=== PATIENT | female | born 1960 | race Hispanic/Latino ===

== ENCOUNTER 2017-10-15 06:21 | Day surgery (SDC) | payer MEDICARE ==
[2015-02-28 09:47] VITALS: BMI 30.1
[2017-10-15] MEDS ORDERED: Lidocaine/Epinephrine 1% 1:100000 10 ML IJ ONE (07:19)
[2017-10-15] MEDS ORDERED: ceFAZolin 1 gm in NS 2 GM/200 ML BAG IVPB ONE (07:29)
[2017-10-15] MEDS ORDERED: Remifentanil 1 mg/3 ml Vial IV ONE ×2 (07:37→09:32)
[2017-10-15] MEDS ORDERED: Propofol 10 mg/ml 1,000 MG/100 ML VIAL ONE (07:37)
[2017-10-15] MEDS ORDERED: Midazolam 2 MG/2 ML VIAL ONE (07:51)
[2017-10-15] MEDS ORDERED: Propofol 10 mg/ml Inj (20 ML) ONE ×3 (07:51→09:23)
[2017-10-15] MEDS ORDERED: Rocuronium 10 mg/ml (10 ml) ONE (07:54)
[2017-10-15] MEDS ORDERED: Phenylephrine 10 mg/ml Inj ONE (08:14)
[2017-10-15] MEDS ORDERED: ePHEDrine 50 mg/ml Inj ONE (08:15)
[2017-10-15] MEDS ORDERED: Bupivacaine 0.5% Inj(30mL) IJ ONE (08:49)
[2017-10-15] MEDS ORDERED: Bupivacaine HCl 0.5% PF (30 ml) Inj ONE ×2 (08:57→10:55)
[2017-10-15] MEDS ORDERED: Labetalol 25mg/5ml Syringe ONE (10:20)
[2017-10-15] MEDS ORDERED: Oxycodone/Acetaminophen 5/325 mg Tab PO PRN (10:44)
[2017-10-15] MEDS ORDERED: HYDROmorphone 1 mg/ml ISec IVP PRN (10:44)
--- NOTE | 2017-10-15 10:44 | PCM.SURG1 ---
Surgeon's Initial Post Op Note - Surgeon's Notes Surgeon: Max Shukla MD Manager Assembly: Lianna Roach PA-C Type of Anesthesia: General Endo Anesthesia Administered By: Dr. Peng Pre-Operative Diagnosis: R shoulder cuff and labral tear Operative Findings: see full note Post-Operative Diagnosis: same Operation Performed: right shoulder arthroscopy with cuff and labral repair with subacromial decompression Specimen/Specimens Removed: none Estimated Blood Loss: EBL {In ML}: 10 Blood Products Given: N/A Drains Used: No Drains Post-Op Condition: Fair Date of Surgery/Procedure: 10/15/17 Time of Surgery/Procedure: 08:30
[2017-10-15] MEDS ORDERED: HYDROmorphone 1 mg/ml ISec ONE (10:50)
[2017-10-15] MEDS ORDERED: Apap-Butalbital-Caffeine 325-50-40mg Tab PO ONE (15:03)
--- NOTE | 2017-10-15 15:18 | PCM.ANESB1 ---
Interscalene Block - Brachial Plexus Date of Procedure: 10/15/17 Anesthesiologist: Tray Peng Pre-Procedure Diagnosis: Postoperative pain Post-Procedure Diagnosis: Postoperative pain Procedure Performed: Interscalene Block of Brachial Plexus Right - Procedure Interscalene Block of Brachial Plexus: This procedure was explained to the patient that it is for post-operative pain management. Consent was obtained after a thorough discussion with the patient regarding the benefits and possible complications of local anesthetic block of the Brachial Plexus at the Interscalene area. The patient was brought to the [facility] and standard monitors were applied. Time out was held with the circulating nurse to confirm the correct surgery and appropriate block. After applying Oxygen by nasal cannula and administering IV Sedation, the patient's head was gently rotated away from the RIGHT_operative shoulder and the anterior scalene groove was carefully palpated. The ultrasound transducer was then applied to the skin in the transverse plane and the brachial plexus was visualized lateral to the carotid artery and in between the anterior and middle scalene muscles. After identification,the anterior lateral portion of the neck was prepped with Betadine solution three times and Lidocaine 1% was injected subcutaneously for topical analgesia. At this point, a # 22 gauge Stimuplex 2 inches insulated needle was inserted into the interscalene groove and directed in a caudal and midline direction. The needle was inserted lateral to the ultrasound transducer in-plane towards the brachial plexus in a [id number] direction. Needle advancement was performed carefully under direct ultrasound visualization. After repeated negative aspiration,___10__cc of_0.5 %bupivicaine were injected and this was followed with 10_cc of 0.5_% _bupivicaine after negative aspiration__. Under ultrasound guidance the local anesthetics were observed surrounding the roots of the brachial plexus. The needle was removed intact and sterile dressing was applied. The patient had stable vital signs, was conscious and in no apparent distress. The patient tolerated the interscalene block of the bracheal plexus well with stable vital signs with no sequalae, no pain, no paresthesias, no complaints.
[2017-10-15] MEDS ORDERED: Promethazine 12.5 mg/10 ml Syrup PO PRN (15:21)
[2017-10-15] MEDS ORDERED: Lactated Ringer's 1,000 ML IV ONE (18:39)
[2017-10-15] MEDS: Lactated Ringer's 1,000 ML IV SCH (20:14)
--- NOTE | 2017-10-15 22:40 | OP ---
PROCEDURE DATE: 10/15/2017 PREOPERATIVE DIAGNOSES: Right shoulder rotator cuff tear, labral tear, impingement syndrome, and biceps tendon tear. POSTOPERATIVE DIAGNOSES: Right shoulder rotator cuff tear, labral tear, impingement syndrome and biceps tendon tear. PROCEDURE: Right shoulder arthroscopy with arthroscopic cuff repair, arthroscopic labral repair, subacromial decompression. SURGEON: Silvano Shukla MD INSTRUCTOR TRAINER CANINE SERVICE: Dr. Shukla was assisted by Yanira Saleh, the physician gift shop assistant. Ms. Saleh was scrubbed and present throughout the entire procedure and assisted in patient positioning, holding of the camera during the repair and wound closure. TYPE OF ANESTHESIA: General. COMPLICATIONS: None. ESTIMATED BLOOD LOSS: 10 mL. INDICATIONS FOR PROCEDURE: This is a 57-year-old female who presented with chronic right shoulder pain. Clinical examination with some pain due to the impingement arc, positive Gaxiola's sign, pain with some weakness, weakness with abduction and forward flexion. MRI examination was consistent with full thickness tear of the supraspinatus as well as tearing of her biceps tendon as well as anterior inferior labral tear. After a period of nonsurgical management, recommendation was for a right shoulder arthroscopy. The risks, benefits, and alternatives of the procedure were discussed with the patient and informed consent was obtained. DESCRIPTION OF PROCEDURE: After surgical site was finally verified in the preoperative holding area, patient was taken to the operating room and placed supine on the operating room table. After administration of general anesthesia, patient received 2 g of Ancef IV. The patient was positioned in the lateral decubitus position with the right shoulder up towards the ceiling. Care was taken to make sure all bony prominences and nerves were well padded and protected. Axillary roll was placed in the left axilla. Venodyne boots were placed on the bilateral lower extremities and the right upper extremity was prepped and draped in the usual sterile fashion. The bony landmarks were identified about the right shoulder and portal sites were injected with a total of 10 mL of 1% lidocaine with epinephrine. Posterior arthroscopy portal was established and the arthroscope was inserted into the shoulder joint. The chondral surface of the glenoid and humeral head were noted to have some grade 1 changes. The anterior interval was identified and under direct arthroscopic visualization an anterior portal was established. The long head of the biceps tendon was not visualized, indicating a chronic tear. Subscapularis did have some intrasubstance tearing but did not appear to be obviously detached. The anterior labrum was probed and the patient was noted to have tear of the anterior inferior labrum approximately at the 4 to 5 o'clock position. At this point through the anterior portal, a Q-Fix Ibrahim [employer] Nephew anchor was inserted into the face of glenoid and using a , the suture was passed around the labral tissue and tied firmly securing the labral tissue back down until the footprint. The labral tissue was again probed and was noted to be stable. The posterior labrum was noted to be intact. The biceps anchor was noted to have a little bit of fraying and this was debrided. Supraspinatus was well visualized. The patient was noted to have a full-thickness tear of the supraspinatus and this was debrided on the articular side. Extensive synovitis was also noted and this was also debrided using a full-radius shaver. No loose bodies were appreciated intraarticularly, and at this point, the arthroscope was inserted into the subacromial space. A lateral port was established and a bursectomy was performed which gave us excellent visualization of the under surface of acromion as well as the rotator cuff. Using a macey, an acromioplasty was performed. Satisfied with the subacromial space adequate decompression, our attention was directed to the rotator cuff tear. The tear could be mobilized back to its footprint, and at this point, the footprint of the rotator cuff was debrided down to the cancellous bone. Once this was done, the tear was repaired by turning two Sudha-Coil double loaded anchors each loading with tape as well as suture, and the sutures were passed in a mattress like fashion and tied firmly securing the tendon back down to the footprint and achieving full coverage. Satisfied, all the instruments were removed and the portal sites were closed using interrupted 2-0 Vicryl suture and 3-0 nylon. A sterile dressing was applied and abduction pillow was placed. The patient was awakened and taken to recovery room in stable condition. Silvano Shukla MD [facility] # [id number]
[2017-10-16 00:26] VITALS: RESP 20
[2017-10-16] MEDS: Lactated Ringer's 1,000 ML IV SCH ×2 (02:47→05:12)
[2017-10-16 08:57] VITALS: BP 127/86; PULSE 55; TEMP 98; O2SAT 95
[2017-10-16] MEDS ORDERED: Enoxaparin 30 mg Syringe SC SCH (10:15)
== END 2017-10-16 11:13 | disposition home or self-care (01) ==
LOC: C.SDS 06:21 → C.6T 18:35 → C.SDS 10-16 11:13
PROVIDERS: ATTEND Orthopaedic Surgery
DX: M75.101 Unspecified rotator cuff tear or rupture of right shoulder, not specified as traumatic (principal); M75.41 Impingement syndrome of right shoulder; S46.111A Strain of muscle, fascia and tendon of long head of biceps, right arm, initial encounter; S43.401A Unspecified sprain of right shoulder joint, initial encounter; G89.29 Other chronic pain; M54.9 Dorsalgia, unspecified; Z85.828 Personal history of other malignant neoplasm of skin
CPT/HCPCS: 29823; 29826; 29827; C1713; J0171; J0690; J1170; J1885; J2250; J2370; J2405; J2704; J3010; J7120

== ENCOUNTER 2018-03-25 07:28 | Day surgery (SDC) | payer MEDICARE ==
[2018-03-22 12:53] VITALS: BMI 28.8
[2018-03-25] MEDS ORDERED: Propofol 10 mg/ml 1,000 MG/100 ML VIAL ONE (08:34)
[2018-03-25] MEDS ORDERED: Midazolam 2 MG/2 ML VIAL ONE ×2 (08:39→09:01)
[2018-03-25] MEDS ORDERED: Lidocaine/Epinephrine 1% 1:100000 10 ML IJ ONE (08:57)
[2018-03-25] MEDS ORDERED: Bupivacaine 0.25% 20 ML INJ IJ ONE (08:57)
[2018-03-25] MEDS ORDERED: ceFAZolin IV 1 gm in Dextrose 1 GM/50 ML BAG IVPB ONE (08:57)
[2018-03-25] MEDS ORDERED: Propofol 10 mg/ml Inj (20 ML) ONE ×4 (08:59→11:03)
[2018-03-25] MEDS ORDERED: ceFAZolin 1 gm in NS 1 GM/100 ML BAG IVPB ONE (09:26)
[2018-03-25] MEDS ORDERED: metroNIDAZOLE IV 500 mg/100 ml 500 MG/100 ML BAG ONE (09:26)
--- NOTE | 2018-03-25 11:37 | PCM.SURG1 ---
Surgeon's Initial Post Op Note - Surgeon's Notes Surgeon: Early Learning Teacher: Dr. Dsouza PGY3 Type of Anesthesia: General Endo Pre-Operative Diagnosis: external hemorrhoids Operative Findings: see operative report Post-Operative Diagnosis: see operative report Operation Performed: hemorrhoidectomy Specimen/Specimens Removed: hemorrhoids Estimated Blood Loss: EBL {In ML}: 20 Blood Products Given: N/A Drains Used: No Drains Post-Op Condition: Good Date of Surgery/Procedure: 03/25/18 Time of Surgery/Procedure: 09:30
[2018-03-25] MEDS ORDERED: HYDROmorphone 0.5 mg/0.5 ml ISec ONE (12:23)
[2018-03-25] MEDS: HYDROmorphone 0.5 mg/0.5 ml ISec IVP PRN ×2 (12:26→12:49)
[2018-03-25] MEDS: Apap-Butalbital-Caffeine 325-50-40mg Tab PO STA ×2 (14:16→14:40)
[2018-03-25 14:36] VITALS: RESP 16
[2018-03-25 14:38] VITALS: BP 132/95; PULSE 80; TEMP 97.7; O2SAT 96
--- NOTE | 2018-03-27 23:36 | OP ---
PROCEDURE DATE: 03/25/2018 PREOPERATIVE DIAGNOSES: 1. Prolapsed grade III and grade IV hemorrhoids. 2. Bleeding per rectum. 3. Chronic constipation. POSTOPERATIVE DIAGNOSES: 1. Prolapsed grade III and grade IV hemorrhoids. 2. Bleeding per rectum. 3. Chronic constipation. PROCEDURES DONE: 1. Two-column hemorrhoidectomy. 2. Examination under anesthesia. 3. Pudendal nerve block. SURGEON: Tariq Vega MD VISUAL STYLIST: Albino Dsouza DO, PGY-3 resident ANESTHESIA: General endotracheal tube anesthesia. ESTIMATED BLOOD LOSS: Around 20 mL. DRAIN: None. PATHOLOGY: 1. Left lateral hemorrhoid. 2. Right lateral large hemorrhoid. They were sent for the pathology. COMPLICATIONS: None. DESCRIPTION OF PROCEDURE: On intraoperative steps, this is a 58-year-old female who was diagnosed with grade III and grade IV hemorrhoids with bleeding per rectum, and the patient also had chronic constipation. After proper treatment of chronic constipation, the patient was consented, brought to the OR, placed supine on the operating table. After induction of the anesthesia, the patient was placed in the prone jackknife position. The buttock was taped apart, and the perineal area was prepped and draped in the usual sterile fashion. Examination under anesthesia was done. The patient had large right lateral as well as left lateral hemorrhoids, and there was no hemorrhoid anteriorly. First, elliptical incision was made surrounding the right lateral hemorrhoid, and the dissection was carried down deep up to the pedicle, and the pedicle was ligated with 0 Vicryl suture, double type. The wound was closed with 2-0 PDS continuous suture as well as 4-0 Vicryl interrupted sutures. After that, the left lateral elliptical incision was made, and the dissection was carried down up to the pedicle. The pedicle was ligated with 2-0 Vicryl interrupted sutures as well as PDS was used to close the wound and 4-0 Vicryl. After that, the bilateral pudendal nerve block was given. Then, 10 mL of lidocaine was injected into the pudendal nerve area on the both sides as well as locally. After that, surgical packing was placed. The wound was covered with sterile dressing, and the patient was placed in supine position. The patient was reversed from anesthesia and sent to the postanesthesia care unit in stable condition. There were no apparent complications. Tariq Vega MD
== END 2018-03-25 14:34 | disposition home or self-care (01) ==
LOC: C.SDS 07:28
PROVIDERS: ATTEND Surgery Surgical Critical Care
DX: K64.9 Unspecified hemorrhoids (principal); K62.5 Hemorrhage of anus and rectum; K59.09 Other constipation; K64.3 Fourth degree hemorrhoids
CPT/HCPCS: 46260; 64430; 88304; J0690; J1170; J1885; J2250; J2405; J2704

== ENCOUNTER 2018-12-09 06:05 | Observation (INO) | payer MEDICARE ==
[2018-12-04 09:55] VITALS: BMI 28.8
[2018-12-09] MEDS ORDERED: Bupivacaine HCl 0.25% PF (10 ml) Inj ONE (07:48)
[2018-12-09] MEDS ORDERED: ceFAZolin 1 gm in NS 2 GM/200 ML BAG IVPB ONE (07:48)
[2018-12-09] MEDS ORDERED: Lidocaine Hydrochloride 10 ML INJ ONE (07:48)
[2018-12-09] MEDS ORDERED: Propofol 10 mg/ml 1,000 MG/100 ML VIAL ONE ×2 (07:51→07:52)
[2018-12-09] MEDS ORDERED: Propofol 10 mg/ml Inj (20 ML) ONE ×5 (07:59→12:07)
[2018-12-09] MEDS ORDERED: Midazolam 2 MG/2 ML VIAL ONE ×3 (07:59→12:10)
--- NOTE | 2018-12-09 12:39 | PCM.SURG1 ---
Surgeon's Initial Post Op Note - Surgeon's Notes Surgeon: Dr. Katalina Cabral, DPM Director Of Agronomy: Lianna Butler, PGY-3; Giovanni Toledo, PGY-3; Kwabena Lawrence, PGY2; Lianna Escobar, PGY2 Type of Anesthesia: General Endo, Local (10cc 1:1 mixture 0.25% marcaine plain to lidocaine 1% plain) Anesthesia Administered By: Dr. Danish MD Pre-Operative Diagnosis: 1) Right calcaneous closed, intra-articular, comminuted, displaced fracture Operative Findings: See dictation. M: Arthrex Standard right percutaneous plate, Arthres 4.0 x 50mm partially threaded cannulated screw. I: 10cc of 0.25% marcaine plain; 8mL Arthrex Quichset Bone Graft Post-Operative Diagnosis: Same as pre-operative Operation Performed: Rigth calcenous open reduction with internal fixation and allograft Specimen/Specimens Removed: None Estimated Blood Loss: EBL {In ML}: 50 Blood Products Given: N/A Drains Used: No Drains Post-Op Condition: Good Date of Surgery/Procedure: 12/09/18 Time of Surgery/Procedure: 12:39
--- NOTE | 2018-12-09 12:56 | CP.PCM.HP ---
<Federico Dickey - Last Filed: 12/09/18 16:36> History of Present Illness - History of Present Illness History of Present Illness: 58 year old female with a past medical history of lip cancer, hyperlipidemia and insomnia presents to the PACU after having a ORIF of the right calcaneus. Patieulalia mix reportedly was holding her grandson when she tripped and fell. Patient denies any chest pain, dizziness, or changes in vision prior to the event. Patient subsequently after the event was unable to bear weight on the ankle. Patient denies any chest pain, headaches, fevers, chills, syncopal episodes, or any other complaints. Medical history: lip cancer, hld, inomnia Medications: Crestor 5mg PO HS, Sumatriptan/Naproxen 500-85mg 1 tab PO PRN, Ambien 10mg PO HS PRN Surgical history: rotator cuff repair, hemorrhoidectomy Allergies: denies Present on Admission - Present on Admission Any Indicators Present on Admission: No Review of Systems - Review of Systems Systems not reviewed;Unavailable: Other Review of Systems: S/P or procedure Past Patient History - Infectious Disease Hx of Infectious Diseases: None - Tetanus Immunizations Tetanus Immunization: Unknown - Past Medical History & Family History Past Medical History?: Yes - Past Social History Smoking Status: Current Some Days Smoker - CARDIAC Hx Cardiac Disorders: No - PULMONARY Hx Respiratory Disorders: No - NEUROLOGICAL Hx Neurological Disorder: Yes Hx Migraine: Yes - HEENT Hx HEENT Problems: No - RENAL Hx Chronic Kidney Disease: No - ENDOCRINE/METABOLIC Hx Endocrine Disorders: No - HEMATOLOGICAL/ONCOLOGICAL Hx Blood Disorders: Yes Hx Cancer: Yes (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 HX: RIGHT DISPLACED CALCANEAL FRACTURE - GASTROINTESTINAL Hx Gastrointestinal Disorders: Yes Hx Hemorrhoids: Yes - GENITOURINARY/GYNECOLOGICAL Hx Genitourinary Disorders: No - PSYCHIATRIC Hx Psychophysiologic Disorder: Yes Hx Anxiety: Yes Hx Depression: Yes - SURGICAL HISTORY Hx Surgeries: Yes Hx Musculoskeletal Surgery: Yes (RIGHT ROTATOR CUFF REPAIR) Other/Comment: HX: "SKIN CANCER-MOLES REMOVED FROM HEAD,SHOULDER, CHEST.". HX: HEMORRHOIDECTOMY - ANESTHESIA Hx Anesthesia: Yes Hx Anesthesia Reactions: Yes (NAUSEA/VOMITING- PRONE TO MOTION SICKNESS) Hx Malignant Hyperthermia: No Has any member of the family had a problem w/ anesthesia?: No Meds Allergies/Adverse Reactions: Allergies Allergy/AdvReac Type Severity Reaction Status Date / Time No Known Allergies Allergy Verified 12/08/18 08:57 Physical Exam - Head Exam Head Exam: ATRAUMATIC, NORMAL INSPECTION - Eye Exam Eye Exam: EOMI, Normal appearance, PERRL Pupil Exam: NORMAL ACCOMODATION, PERRL. absent: Irregular, Unequal - ENT Exam ENT Exam: Mucous Membranes Moist, Normal Oropharynx - Respiratory Exam Respiratory Exam: Clear to Auscultation Bilateral, NORMAL BREATHING PATTERN. absent: Prolonged Expiratory Phase, Respiratory Distress - Cardiovascular Exam Cardiovascular Exam: REGULAR RHYTHM, +S1, +S2 - GI/Abdominal Exam GI & Abdominal Exam: Normal Bowel Sounds, Soft. absent: Organomegaly, Tenderness - Extremities Exam Extremities exam: Positive for: normal inspection. Negative for: full ROM, pedal edema - Back Exam Back exam: NORMAL INSPECTION. absent: CVA tenderness (L), CVA tenderness (R), paraspinal tenderness - Neurological Exam Neurological exam: Alert, CN II-XII Intact, Oriented x3 - Psychiatric Exam Psychiatric exam: Normal Affect, Normal Mood - Skin Skin Exam: Dry, Intact, Normal Color Results - Vital Signs Recent Vital Signs: Last Vital Signs Temp 98.1 F 12/09/18 07:02 Pulse 86 12/09/18 07:02 Resp 18 12/09/18 07:02 BP 105/70 12/09/18 07:02 Pulse Ox 97 12/09/18 07:02 - Labs Result Diagrams: 12/09/18 15:21 12/09/18 15:21 Assessment & Plan - Assessment and Plan (Free Text) Assessment: 58 year old female with a past medical history of lip cancer, hyperlipidemia and insomnia presents to the PACU after having a ORIF of the right calcaneus Plan: 1.Right displaced intrarticular calcaneal fracutre Acute s/p ORIF by Podiatry Dr. Cabral Patient to have nerve block done by Anestheisiology prior to transfer to floor. Patient has history of nausea and vomiting with other pain medicines. Medications: Oxycodone 1 PO Q4 PRN Oxycodone 2 PO Q4 PRN Toradol 30mg IVP Q6 PRN Zofran 4mg IVP ONCE PRN 2.Elevated AST Acute -AST 47 on admission -Will f/u with repeat liver enzymes tomorrow. 3.hx of Hyerplipidemia Chronic -Continue Rosuvastatin 5mg PO HS 4.hx of Migraines -Chronic -Continue Sumatriptan 1 tab PO PRN (Once dose and frequency confirmed after pain medication subsides.) ppx -Lovenox -GI ppx not indicated at this time. Dispo: Awaiting further recommendations from Podiatry. Plan discussed with Attending Dr. Juan Irizarry. Federico Dickey, PGY-2 <Juan Irizarry - Last Filed: 12/13/18 12:47> Results - Vital Signs Recent Vital Signs: Last Vital Signs Temp 99.0 F 12/10/18 16:00 Pulse 75 12/10/18 16:00 Resp 20 12/10/18 16:00 BP 114/67 12/10/18 16:00 Pulse Ox 96 12/10/18 18:00 - Labs Result Diagrams: 12/10/18 06:47 12/10/18 06:47 Attending/Attestation - Attestation I have personally seen and examined this patient.: Yes I have fully participated in the care of the patient.: Yes I have reviewed all pertinent clinical information: Yes Notes (Text): 12/13/18 12:47 This is a late entry. Care of this patient (History, Physical, Assessment and Plan, and Orders) was gone over in detail with resident Dr. Robin Dickey. Juan Irizarry D.O.
[2018-12-09] MEDS ORDERED: Ropivacaine 0.5% PF (20 ml) inj INJ ONE (14:35)
--- NOTE | 2018-12-09 15:01 | RAD ---
Date of service: 12/09/2018 PROCEDURE: Right Foot Radiographs. HISTORY: s/p calcaneus fracture ORIF COMPARISON: None. TECHNIQUE: Four views obtained. FINDINGS: BONES: Status post ORIF calcaneal fracture. Near anatomic alignment is achieved. Multiple fixation screws traverse the fracture of the calcaneus. No additional fracture is evident. JOINTS: Normal. SOFT TISSUES: Normal. OTHER FINDINGS: None. IMPRESSION: Status post ORIF calcaneal fracture. No preoperative film available for comparison
--- NOTE | 2018-12-09 15:02 | RAD ---
Date of service: 12/09/2018 PROCEDURE: Intraoperative Fluoroscopy. HISTORY: RT. CALCANEOUS FX. FINDINGS: Fluoroscopic assistance was provided. Fluoroscopy time = 203.8 sec. Radiation dose = 3.06 mGy. Please refer to the operative report from [facility].
[2018-12-09 15:41] LABS: BASO % 0.3 % (0.0-2.0); EOS % 0.1 % (0.0-4.0); HEMOGLOBIN 12.4 g/dL (11.0-16.0); LYMPH # 0.5 K/uL (1.0-4.3); LYMPH % 6.6 % (20.0-40.0); MEAN CELL VOLUME 87.6 fL (81.0-99.0); MEAN CORPUSCULAR HEMOGLOBIN 28.9 pg (27.0-31.0); MEAN PLATELET VOLUME 12.1 fL (7.2-11.7); MONO # 0.2 K/uL (0.0-0.8); MONO % 2.7 % (0.0-10.0); NEUT # 7.2 K/uL (1.8-7.0); NEUT % 90.3 % (50.0-75.0); PLATELET COUNT 150 K/uL (130-400); RBC 4.28 Mil/uL (3.80-5.20); RED CELL DISTRIBUTION WIDTH 16.3 % (11.5-14.5); WHITE BLOOD COUNT 7.9 K/uL (4.8-10.8)
[2018-12-09 15:51] LABS: ALB/GLOB RATIO 1.3 (1.0-2.1); ALT/SGPT 33 U/L (9-52); AST/SGOT 47 U/L (14-36); BLOOD UREA NITROGEN 11 mg/dL (7-17); CALCIUM 9.1 mg/dl (8.6-10.4); GFR NON-AFRICAN AMERICAN > 60
--- NOTE | 2018-12-09 15:56 | PCM.ANESB2 ---
Popliteal Nerve Block - Popliteal Nerve Block Date of Procedure: 12/09/18 Anesthesiologist: Tray Peng Procedure Performed: Popliteal Nerve Block Right - Procedure Popliteal Nerve Block: This procedure was explained to the patient that it is for post-operative pain management. Consent was obtained after a thorough discussion with the patient regarding the benefits and possible complications of local anesthetic block of the sciatic nerve at the popliteal level pre-operatively. The patient was brought to the operating room and standard monitors are applied. Time-out was held with the circulating nurse to confirm the correct surgery and the appropriate block. After applying oxygen by nasal cannula and administering IV Sedation, patient's operative leg was gently raised and supported and the groove in between the biceps femoris and vastus lateralis muscles was carefully palpated. The skin approximately 8cm above the popliteal crease was then marked. The ultrasound transducer was then applied to the posterior thigh approximately 8cm above the popliteal crease in the transverse plane and the sciatic nerve before its division was visualized lateral to the popliteal artery and in between the bicep femoris and semimembranosus/semitendinosus muscles. After identification, the lateral portion of the thigh was prepped with chloraprep three times and Lidocaine 1% was injected subcutaneously for topical anesthesia. At this point, a # 21 gauge Stimuplex insulated 4 inch needle was inserted into pre-marked area and advanced in a perpendicular direction. The needle was insert ed above the ultrasound transducer in-plane towards the sciatic nerve in a [id number] direction. Needle advancement was performed carefully under direct ultrasound visualization. Nerve stimulator was used and dorsiflexion of the RIGHT foot was elicited at a current of 0.5 MA. After repeated negative aspiration, 10 cc of 0.5 % _ropivicaine was injected and this was flowed with _10 cc of 0.5 % _ropivicaine. Under ultrasound guidance the local anesthetics were observed surrounding sciatic nerve . The needle was removed intact and sterile dressing was applied. The patient tolerated the popliteal nerve block well with stable vital signs in PACU, was awake alert throughout for feedback, no complaints of paresthesias or pain.
[2018-12-09] MEDS ORDERED: SUMATRIPTAN SUCC PO PRN (16:24)
[2018-12-09] MEDS ORDERED: NAPROXEN SOD PO PRN (16:24)
[2018-12-09 16:54] VITALS: RESP 20
[2018-12-09] MEDS: Oxycodone/Acetaminophen 5/325 mg Tab PO PRN ×2 (17:08→22:21)
[2018-12-09 17:57] LABS: BANDS 3 % (0-2); LYMPHOCYTE 6 % (20-40); MONOCYTE 4 % (0-10); NEUTROPHIL 87 % (50-75); TOTAL CELLS COUNTED 100
[2018-12-09 17:58] LABS: PLATELET ESTIMATE NORMAL (NORMAL)
--- NOTE | 2018-12-10 01:50 | CP.PCM.PN ---
<Ricki Stokes - Last Filed: 12/10/18 06:48> Subjective - Date & Time of Evaluation Date of Evaluation: 12/10/18 Time of Evaluation: 01:00 - Subjective Subjective: Progress Note for Dr. Juan Irizarry Pt seen and examined at bedside, observed sleeping overnight. No acute events reported overnight by staff. Objective - Vital Signs/Intake and Output Vital Signs (last 24 hours): Temp Pulse Resp BP Pulse Ox 98.3 F 73 20 105/61 96 12/10/18 00:03 12/10/18 00:03 12/10/18 00:03 12/10/18 00:03 12/10/18 00:03 Intake and Output: 12/09/18 12/10/18 18:59 06:59 Intake Total 2400 1000 Output Total 1300 Balance 1100 1000 - Medications Medications: Current Medications Enoxaparin Sodium (Lovenox) 40 mg SC DAILY [facility] Ketorolac Tromethamine (Toradol) 30 mg IVP Q6 PRN PRN Reason: Pain, severe (8-10) Stop: 12/10/18 06:01 Last Admin: 12/09/18 19:52 Dose: 30 mg Oxycodone/Acetaminophen (Percocet 5/325 Mg Tab) 1 tab PO Q4H PRN PRN Reason: Pain, Mild (1-3) Stop: 12/12/18 12:35 Oxycodone/Acetaminophen (Percocet 5/325 Mg Tab) 2 tab PO Q4H PRN PRN Reason: Pain, moderate (4-7) Stop: 12/12/18 12:35 Last Admin: 12/09/18 22:21 Dose: 2 tab Pneumococcal Polyvalent Vaccine (Pneumovax 23 Vaccine) 0.5 ml IM .ONCE ONE Stop: 12/10/18 10:01 Rosuvastatin Calcium (Crestor) 5 mg PO HS [facility] Last Admin: 12/09/18 22:17 Dose: 5 mg - Labs Labs: 12/09/18 15:21 12/09/18 15:21 - Head Exam Head Exam: ATRAUMATIC, NORMOCEPHALIC - Eye Exam Eye Exam: EOMI, Normal appearance, PERRL - ENT Exam ENT Exam: Mucous Membranes Moist - Respiratory Exam Respiratory Exam: Clear to Ausculation Bilateral, NORMAL BREATHING PATTERN - Cardiovascular Exam Cardiovascular Exam: REGULAR RHYTHM, +S1, +S2 - GI/Abdominal Exam GI & Abdominal Exam: Soft, Normal Bowel Sounds. absent: Distended, Tenderness - Neurological Exam Neurological Exam: Alert, Awake, Oriented x3 - Skin Skin Exam: Dry, Intact, Warm Assessment and Plan - Assessment and Plan (Free Text) Assessment: 58 year old female with a past medical history of lip cancer, hyperlipidemia and insomnia presents to the PACU after having a ORIF of the right calcaneus. Plan: 1.Right displaced intrarticular calcaneal fracture Acute s/p ORIF by Podiatry Dr. Cabral S/p nerve block done by Anestheisiology prior to transfer to floor. Patient has history of nausea and vomiting with other pain medicines. Medications: Oxycodone 1 PO Q4 PRN Oxycodone 2 PO Q4 PRN Toradol 30mg IVP Q6 PRN Zofran 4mg IVP ONCE PRN 2.Elevated AST Acute -AST 47 on admission -F/u with repeat liver enzymes today. 3.hx of Hyperlipidemia Chronic -Continue Rosuvastatin 5mg PO HS 4.hx of Migraines -Chronic -Continue Sumatriptan 1 tab PO PRN (Once dose and frequency confirmed after pain medication subsides.) ppx -Lovenox -GI ppx not indicated at this time. Dispo: Awaiting further recommendations from Podiatry. Further recs as per Dr. Juan Irizarry, attending physician. Ricki Stokes DO PGY-1 <Juan Irizarry J - Last Filed: 12/13/18 13:09> Objective - Vital Signs/Intake and Output Vital Signs (last 24 hours): Temp Pulse Resp BP Pulse Ox 99.0 F 75 20 114/67 96 12/10/18 16:00 12/10/18 16:00 12/10/18 16:00 12/10/18 16:00 12/10/18 18:00 - Labs Labs: 12/10/18 06:47 12/10/18 06:47 Attending/Attestation - Attestation I have personally seen and examined this patient.: Yes I have fully participated in the care of the patient.: Yes I have reviewed all pertinent clinical information, including history, physical exam and plan: Yes Notes (Text): 12/13/18 13:09 This is a late entry. Care of this patient was gone over in detail with Dr. Martin Stokes. Juan Irizarry D.O.
[2018-12-10] MEDS: Oxycodone/Acetaminophen 5/325 mg Tab PO PRN ×2 (06:15→12:53)
[2018-12-10 07:17] LABS: ALB/GLOB RATIO 1.4 (1.0-2.1); ALBUMIN 3.5 g/dL (3.5-5.0); ALT/SGPT 33 U/L (9-52); AST/SGOT 46 U/L (14-36); BLOOD UREA NITROGEN 12 mg/dL (7-17); CALCIUM 8.9 mg/dl (8.6-10.4); EOS % 0.1 % (0.0-4.0); GFR NON-AFRICAN AMERICAN > 60; NEUT % 75.3 % (50.0-75.0); RBC 3.73 Mil/uL (3.80-5.20); WHITE BLOOD COUNT 7.5 K/uL (4.8-10.8)
[2018-12-10 07:39] LABS: BASO % 0.2 % (0.0-2.0); LYMPH # 1.2 K/uL (1.0-4.3); LYMPH % 15.8 % (20.0-40.0); MEAN CELL VOLUME 85.8 fL (81.0-99.0); MEAN CORPUSCULAR HEMOGLOBIN 29.4 pg (27.0-31.0); MEAN CORPUSCULAR HGB CONC 34.3 g/dL (33.0-37.0); MEAN PLATELET VOLUME 11.1 fL (7.2-11.7); MONO # 0.6 K/uL (0.0-0.8); MONO % 8.6 % (0.0-10.0); NEUT # 5.6 K/uL (1.8-7.0); RED CELL DISTRIBUTION WIDTH 15.7 % (11.5-14.5)
[2018-12-10] MEDS ORDERED: Pneumococcal 23-Valent Vaccine IM ONE (10:00)
[2018-12-10] MEDS ORDERED: Enoxaparin 40 mg Syringe SC SCH (10:00)
--- NOTE | 2018-12-10 10:48 | CP.PCM.PN ---
Subjective - Date & Time of Evaluation Date of Evaluation: 12/10/18 Time of Evaluation: 10:50 - Subjective Subjective: Podiatry Progress Note- Dr. Cabral 58F seen and evaluated at bedside POD #1 right calcaneus fracture ORIF by Dr. Cabral at [facility]. Patient is seen resting comfortably in bed, in NAD, and AA0x3. Patient denies acute overnight. Denies of pain to the right lower extremity. Reports that the popliteal block given to her yesterday is still in effect. She is able to wiggle her toes and feels pins and needles. Patient denies of calf pain. No pedal complains. Reports was given 3 prescriptions, including for pain. Reports will take medication as prescribed. Denies nausea, fever, shortness of breath, chest pains or chills. Splint is clean, dry and intact. Patient complains of continued pain to the left shoulder. Reports she does not know how to move around with her left shoulder pain. Reports no improvement in pain since her initial fall at home. Reports X-rays did not show fracture. Reports have not been seen by physical therapy yet and has not gotten a MRI taken yet. Objective - Vital Signs/Intake and Output Vital Signs (last 24 hours): Temp Pulse Resp BP Pulse Ox 98.1 F 77 20 119/73 96 12/10/18 07:56 12/10/18 07:56 12/10/18 07:56 12/10/18 07:56 12/10/18 07:56 Intake and Output: 12/10/18 12/10/18 06:59 18:59 Intake Total 1000 415 Balance 1000 415 - Medications Medications: Current Medications Enoxaparin Sodium (Lovenox) 40 mg SC DAILY [facility] Last Admin: 12/10/18 10:09 Dose: 40 mg Oxycodone/Acetaminophen (Percocet 5/325 Mg Tab) 1 tab PO Q4H PRN PRN Reason: Pain, Mild (1-3) Stop: 12/12/18 12:35 Last Admin: 12/10/18 06:15 Dose: 1 tab Oxycodone/Acetaminophen (Percocet 5/325 Mg Tab) 2 tab PO Q4H PRN PRN Reason: Pain, moderate (4-7) Stop: 12/12/18 12:35 Last Admin: 12/09/18 22:21 Dose: 2 tab Rosuvastatin Calcium (Crestor) 5 mg PO HS [facility] Last Admin: 12/09/18 22:17 Dose: 5 mg - Labs Labs: 12/10/18 06:47 12/10/18 06:47 - Constitutional Appears: Well, Non-toxic, No Acute Distress - Extremities Exam Extremities Exam: absent: Calf Tenderness Additional comments: Posterior splint clean dry and intact Temperature WNL, CFT < 3 seconds Able to wiggle toes Mild pain to palpation of medial and lateral heel - Neurological Exam Neurological Exam: Alert, Awake, Oriented x3 Assessment and Plan - Assessment and Plan (Free Text) Assessment: 8F seen and evaluated at bedside POD #1 right calcaneus fracture ORIF- stable Plan: -Patient seen and examined -Labs, vitals, chart reviewed - Discussed plan in detail with Dr. Cabral -Postoperative X-rays reviewed- s/p calcaneus ORIF with hardware in tact -Patient in good/stable condition for discharge home -Resume regular diet -Please keep dressing clean, dry, & intact to surgical site -Use plastic bag over bandage for showering -Call clinic if you see signs of infection (redness, swelling, malodor) -Please make an appointment to see Dr. Cabral in office/clinic within 1 week for post-op check - Fill prescription and take as prescribed - RICE protocol -NWB to right lower extremity with assistive device -PT- evaluate and treat- thank you - Dr. Kiser Orthopedic consulted for left should pain, recommendations appreciated -MRI ordered, patient to follow up with Dr. Kiser in office. Please refer. Dhruv nk you All questions/concerns addressed
--- NOTE | 2018-12-10 15:39 | CP.PCM.PN ---
<Elvis Sorto - Last Filed: 12/10/18 16:23> Subjective - Date & Time of Evaluation Date of Evaluation: 12/10/18 Time of Evaluation: 15:34 - Subjective Subjective: PGY3 note for Dr Irizarry's service Patient seen and examined at bedside. Nursing reports no acute events overnight. Patient states the "nerve block is wearing off" and her pain is poorly controlled. She states the percocet is not controlling the breakthrough pain. She states the pain in the shoulder is 4-5/10 "dull ache." She states she has full ROM in the shoulder but notes pain worsened with flexion. She states she was given "three prescriptions" by Dr Cabral. Patient called [facility] in [place] to confirm these prescriptions. Pharmacist at [place] prescriptions for Xarelto 10mg, Keflex 500mg, and Percocet 5/325mg. Patient states she already owns "scooter" at home, that she is to use following Calcaneal fracture surgery. Objective - Vital Signs/Intake and Output Vital Signs (last 24 hours): Temp Pulse Resp BP Pulse Ox 98.1 F 77 20 119/73 96 12/10/18 07:56 12/10/18 07:56 12/10/18 07:56 12/10/18 07:56 12/10/18 12:30 Intake and Output: 12/10/18 12/10/18 06:59 18:59 Intake Total 1000 815 Balance 1000 815 - Medications Medications: Current Medications Enoxaparin Sodium (Lovenox) 40 mg SC DAILY [facility] Last Admin: 12/10/18 10:09 Dose: 40 mg Oxycodone/Acetaminophen (Percocet 5/325 Mg Tab) 1 tab PO Q4H PRN PRN Reason: Pain, Mild (1-3) Stop: 12/12/18 12:35 Last Admin: 12/10/18 12:53 Dose: 1 tab Oxycodone/Acetaminophen (Percocet 5/325 Mg Tab) 2 tab PO Q4H PRN PRN Reason: Pain, moderate (4-7) Stop: 12/12/18 12:35 Last Admin: 12/09/18 22:21 Dose: 2 tab Rosuvastatin Calcium (Crestor) 5 mg PO [facility] Last Admin: 12/09/18 22:17 Dose: 5 mg - Labs Labs: 12/10/18 06:47 12/10/18 06:47 - Constitutional Appears: Non-toxic, No Acute Distress - Head Exam Head Exam: ATRAUMATIC, NORMAL INSPECTION - Eye Exam Eye Exam: EOMI, Normal appearance. absent: Scleral icterus Pupil Exam: PERRL - ENT Exam ENT Exam: Mucous Membranes Moist - Neck Exam Neck Exam: Full ROM - Respiratory Exam Respiratory Exam: Clear to Ausculation Bilateral, NORMAL BREATHING PATTERN - Cardiovascular Exam Cardiovascular Exam: REGULAR RHYTHM, +S1, +S2 - GI/Abdominal Exam GI & Abdominal Exam: Soft, Normal Bowel Sounds. absent: Tenderness - Extremities Exam Extremities Exam: absent: Normal Inspection Additional comments: RLE wrapped in gauze dressing - Back Exam Back Exam: absent: CVA tenderness (L), CVA tenderness (R) - Neurological Exam Neurological Exam: Alert, Awake, Oriented x3 - Psychiatric Exam Psychiatric exam: Normal Affect, Normal Mood - Skin Skin Exam: Dry, Normal Color, Warm Assessment and Plan - Assessment and Plan (Free Text) Plan: Assessment: 58 year old female with a past medical history of lip cancer, hyperlipidemia and insomnia presents to the PACU after having a ORIF of the right calcaneus. Plan: 1.Right displaced intrarticular calcaneal fracture (POD#1) Acute s/p ORIF by Podiatry Dr. Cabral S/p nerve block done by Anestheisiology prior to transfer to floor. Patient has history of nausea and vomiting with other pain medicines. Medications: Oxycodone 1 PO Q4 PRN Oxycodone 2 PO Q4 PRN Toradol 30mg IVP Q6 PRN Zofran 4mg IVP ONCE PRN 2.Elevated AST Acute -AST 47 on admission -F/u with repeat liver enzymes today. 3.hx of Hyperlipidemia Chronic -Continue Rosuvastatin 5mg PO HS 4.hx of Migraines -Chronic -Continue Sumatriptan 1 tab PO PRN (Once dose and frequency confirmed after pain medication subsides.) ppx -Lovenox -GI ppx not indicated at this time. Dispo: Spoke w/ podiatry resident who communicated Dr Cabral instructions. Patient already owns weight offloading scooter. Pt will be anticoagulated per podiatry instructions (Xarelto 10mg x [address]). [address] Cabral has already called in to [facility] [place] [facility]to, Keflex 500mg, and Percocet. Pt given Morphine 3mg IV once at time of discharge for pain relief. She was told to f/u with Dr Kiser (Ortho student union consultant), and Dr Cabral within one week. She will get her MRI results of her shoulder as outpatient at Dr Kiser's office. Elvis Sorto PGY3 Further recs as per Dr. Juan Irizarry, attending physician. <Juan Irizarry - Last Filed: 12/13/18 13:14> Objective - Vital Signs/Intake and Output Vital Signs (last 24 hours): Temp Pulse Resp BP Pulse Ox 99.0 F 75 20 114/67 96 12/10/18 16:00 12/10/18 16:00 12/10/18 16:00 12/10/18 16:00 12/10/18 18:00 - Labs Labs: 12/10/18 06:47 12/10/18 06:47 Attending/Attestation - Attestation I have personally seen and examined this patient.: Yes I have fully participated in the care of the patient.: Yes I have reviewed all pertinent clinical information, including history, physical exam and plan: Yes Notes (Text): 12/13/18 13:14 This is a late entry. Care of this patient was gone over in detail with Dr. Taryn Sorto. Juan Irizarry D.O.
[2018-12-10 16:01] VITALS: BP 114/67; PULSE 75; TEMP 99
[2018-12-10] MEDS ORDERED: Morphine 4 MG/ML VIAL IV ONE (16:30)
--- NOTE | 2018-12-10 18:22 | MRI ---
MRI left shoulder HISTORY: Fall. Injury. Comparison: None available. Technique: Multi-echo multiplanar sequences were performed through the left shoulder without the use of intravenous contrast. Findings: Markedly limited exam given extensive patient motion artifact. In addition, there is prominent blooming artifact from signal abnormality seen superior to the clavicle. These images are essentially nondiagnostic. Repeat study is recommended if clinically indicated. Large amount of fluid and edema seen at the inferior aspect of the glenohumeral joint space with nonvisualization of the attachment of the inferior glenohumeral ligament on the proximal humerus concerning for a humeral avulsion of the inferior glenohumeral ligament. This would be best demonstrated on series 6 images 3 through 13. Clinical correlation. Patchy reactive bone marrow edema seen at the level of the greater tuberosity of the proximal humerus with mild patchy decreased T1 signal and increased STIR signal seen within the greater tuberosity as demonstrated on series 6 images 7 through 13 suggestive for bone bruising and or mild subchondral osseous injury. 5.8 millimeter focal area of fluid signal attenuation at the far anterior insertion of the distal supraspinatus tendon on the greater tuberosity best seen on series 6 image 13 suggestive for a small full thickness tear with partial retraction of the distal supraspinatus tendon. More proximally, there is prominent partial articular surface tearing of the distal supraspinatus tendon with an associated severe tendinopathy. No gross muscle atrophy. Mild distal infraspinatus tendinopathy with articular surface fraying. Teres minor tendon is preserved. Fluid and edema within the subacromial and subdeltoid bursa. Prominent partial articular surface tearing with an associated moderate to severe tendinopathy of the distal subscapularis tendon. Proximal portion of the long head of the biceps tendon appears thinned and attenuated with increased signal within its proximal aspect suggestive for a moderate tendinopathy and or mild partial tearing. Evaluation of the glenoid labrum demonstrates increased signal within the superior labrum extending from anterior to posterior suggestive a tear. Additional fraying and partial tearing at the level of the anterior inferior labrum. Small glenohumeral joint effusion. Moderate acromioclavicular joint space degenerative changes with joint space narrowing, subchondral edema, and bony hypertrophy. Heterogeneity of the visualized marrow with patchy decreased T1 signal suggestive for hematopoietic marrow reconversion. Shotty axillary lymph nodes are noted. Impression: Markedly limited exam given extensive patient motion artifact. In addition, there is prominent blooming artifact from signal abnormality seen superior to the clavicle. These images are essentially nondiagnostic. Repeat study is recommended if clinically indicated. 1. Large amount of fluid and edema seen at the inferior aspect of the glenohumeral joint space with nonvisualization of the attachment of the inferior glenohumeral ligament on the proximal humerus concerning for a humeral avulsion of the inferior glenohumeral ligament. This would be best demonstrated on series 6 images 3 through 13. Clinical correlation. 2. Patchy reactive bone marrow edema seen at the level of the greater tuberosity of the proximal humerus with mild patchy decreased T1 signal and increased STIR signal seen within the greater tuberosity as demonstrated on series 6 images 7 through 13 suggestive for bone bruising and or mild subchondral osseous injury. Clinical correlation. Correlation with plain x-ray may be helpful. 3. 5.8 millimeter focal area of fluid signal attenuation at the far anterior insertion of the distal supraspinatus tendon on the greater tuberosity best seen on series 6 image 13 suggestive for a small full thickness tear with partial retraction of the distal supraspinatus tendon. More proximally, there is prominent partial articular surface tearing of the distal supraspinatus tendon with an associated severe tendinopathy. No gross muscle atrophy. 4. Mild distal infraspinatus tendinopathy with articular surface fraying. 5. Fluid and edema within the subacromial and subdeltoid bursa. 6. Prominent partial articular surface tearing with an associated moderate to severe tendinopathy of the distal subscapularis tendon. 7. Proximal portion of the long head of the biceps tendon appears thinned and attenuated with increased signal within its proximal aspect suggestive for a moderate tendinopathy and or mild partial tearing. 8. Evaluation of the glenoid labrum demonstrates increased signal within the superior labrum extending from anterior to posterior suggestive a tear. Additional fraying and partial tearing at the level of the anterior inferior labrum. 9. Small glenohumeral joint effusion. 10. Moderate acromioclavicular joint space degenerative changes with joint space narrowing, subchondral edema, and bony hypertrophy. 11. Heterogeneity of the visualized marrow with patchy decreased T1 signal suggestive for hematopoietic marrow reconversion.
[2018-12-10 18:42] VITALS: O2SAT 96
--- NOTE | 2018-12-10 18:51 | CP.PCM.DIS ---
<Prabhakar Sortoic - Last Filed: 12/10/18 18:42> Provider - Provider Date of Admission: 12/09/18 12:28 Attending physician: Benito Hudson DO Primary care physician: PMD: unknown Dr Satya Irizarry, hospitalist Consults: 12/09/18 18:20 Orthopedic Consult Routine Comment: left shoulder pain s/p traumatic fall Consulting Provider: Cathy Kiser Consulting Physician: Cathy Kiser Reason for Consult: left shoulder pain s/p traumatic fall Podiatry: Dr Cabral Time Spent in preparation of Discharge (in minutes): 41 Diagnosis - Discharge Diagnosis (1) Calcaneal fracture Status: Acute Comment: see hospital course Hospital Course - Lab Results Lab Results: Most Recent Lab Values WBC 7.5 K/uL (4.8-10.8) 12/10/18 06:47 RBC 3.73 Mil/uL (3.80-5.20) L 12/10/18 06:47 Hgb 11.0 g/dL (11.0-16.0) 12/10/18 06:47 Hct 32.0 % (34.0-47.0) L 12/10/18 06:47 MCV 85.8 fL (81.0-99.0) 12/10/18 06:47 MCH 29.4 pg (27.0-31.0) 12/10/18 06:47 MCHC 34.3 g/dL (33.0-37.0) 12/10/18 06:47 RDW 15.7 % (11.5-14.5) H 12/10/18 06:47 Plt Count 129 K/uL (130-400) L D 12/10/18 06:47 MPV 11.1 fL (7.2-11.7) 12/10/18 06:47 Neut % (Auto) 75.3 % (50.0-75.0) H 12/10/18 06:47 Lymph % (Auto) 15.8 % (20.0-40.0) L 12/10/18 06:47 [place] % (Auto) 8.6 % (0.0-10.0) 12/10/18 06:47 Eos % (Auto) 0.1 % (0.0-4.0) 12/10/18 06:47 Baso % (Auto) 0.2 % (0.0-2.0) 12/10/18 06:47 Neut # (Auto) 5.6 K/uL (1.8-7.0) 12/10/18 06:47 Lymph # (Auto) 1.2 K/uL (1.0-4.3) 12/10/18 06:47 [place] # (Auto) 0.6 K/uL (0.0-0.8) 12/10/18 06:47 Eos # (Auto) 0.0 K/uL (0.0-0.7) 12/10/18 06:47 Baso # (Auto) 0.0 K/uL (0.0-0.2) 12/10/18 06:47 Neutrophils % (Manual) 87 % (50-75) H 12/09/18 15:21 Band Neutrophils % 3 % (0-2) H 12/09/18 15:21 Lymphocytes % (Manual) 6 % (20-40) L 12/09/18 15:21 Monocytes % (Manual) 4 % (0-10) 12/09/18 15:21 Differential Comment 12/10/18 06:47 Platelet Estimate Normal (NORMAL) 12/09/18 15:21 Sodium 136 mmol/L (132-148) 12/10/18 06:47 Potassium 3.9 mmol/L (3.6-5.2) 12/10/18 06:47 Chloride 104 mmol/L (98-107) 12/10/18 06:47 Carbon Dioxide 30 mmol/L (22-30) 12/10/18 06:47 Anion Gap 7 (10-20) L 12/10/18 06:47 BUN 12 mg/dL (7-17) 12/10/18 06:47 Creatinine 0.6 mg/dL (0.7-1.2) L 12/10/18 06:47 Est GFR ( Amer) > 60 12/10/18 06:47 Est GFR (Non-Af Amer) > 60 12/10/18 06:47 Random Glucose 96 mg/dL (65-105) D 12/10/18 06:47 Calcium 8.9 mg/dl (8.6-10.4) 12/10/18 06:47 Phosphorus 2.7 mg/dL (2.5-4.5) 12/10/18 06:47 Magnesium 1.9 mg/dL (1.6-2.3) 12/10/18 06:47 Total Bilirubin 0.3 mg/dL (0.2-1.3) 12/10/18 06:47 AST 46 U/L (14-36) H 12/10/18 06:47 ALT 33 U/L (9-52) 12/10/18 06:47 Alkaline Phosphatase 64 U/L (38-126) 12/10/18 06:47 Total Protein 6.0 g/dL (6.3-8.3) L 12/10/18 06:47 Albumin 3.5 g/dL (3.5-5.0) 12/10/18 06:47 Globulin 2.5 gm/dL (2.2-3.9) 12/10/18 06:47 Albumin/Globulin Ratio 1.4 (1.0-2.1) 12/10/18 06:47 - Hospital Course Hospital Course: On admission: 58 year old female with a past medical history of lip cancer, hyperlipidemia and insomnia presents to the PACU after having a ORIF of the right calcaneus. Patient reportedly was holding her grandson when she tripped and fell. Patient denies any chest pain, dizziness, or changes in vision prior to the event. Patient subsequently after the event was unable to bear weight on the ankle. Patient denies any chest pain, headaches, fevers, chills, syncopal episodes, or any other complaints. Hospital course: Admitted on 12/09/18, s/p ORIF right calcaneal fracture. Dr Cabral, placement specialist performed the surgery, and was added as project consultant. Patient was admitted on med/surg floor and her pain was monitored. Dr Peng, anesthesia, performed nerve block on 12/09/18. Patient anticoagulated with Lovenox in hospital starting 12/10/18. Dr Cabral, ok with discharge on 12/10/18. Patient states she has prescriptions for xarelto, percocet, and keflex at home. She is aware not to take Sumatriptan for her headaches due to interaction. Discharged on 12/10/18. - Date & Time of H&P Date of H&P: 12/09/18 Time of H&P: 12:55 Discharge Exam - Additional Findings Additional findings: - Constitutional Appears: Non-toxic, No Acute Distress - Head Exam Head Exam: ATRAUMATIC, NORMAL INSPECTION - Eye Exam Eye Exam: EOMI, Normal appearance. absent: Scleral icterus Pupil Exam: PERRL - ENT Exam ENT Exam: Mucous Membranes Moist - Neck Exam Neck Exam: Full ROM - Respiratory Exam Respiratory Exam: Clear to Ausculation Bilateral, NORMAL BREATHING PATTERN - Cardiovascular Exam Cardiovascular Exam: REGULAR RHYTHM, +S1, +S2 - GI/Abdominal Exam GI & Abdominal Exam: Soft, Normal Bowel Sounds. absent: Tenderness - Extremities Exam Extremities Exam: absent: Normal Inspection Additional comments: RLE wrapped in gauze dressing - Back Exam Back Exam: absent: CVA tenderness (L), CVA tenderness (R) - Neurological Exam Neurological Exam: Alert, Awake, Oriented x3 - Psychiatric Exam Psychiatric exam: Normal Affect, Normal Mood - Skin Skin Exam: Dry, Normal Color, Warm Discharge Plan - Discharge Medications Prescriptions: Cephalexin [Keflex] 500 mg PO BID #14 capsule Lactobacillus Acidophilus [Lactobacillus] 1 cap PO BID #74 cap Rivaroxaban [Xarelto] 10 mg PO DAILY #30 tab - Follow Up Plan Condition: GOOD Disposition: HOME/ ROUTINE Additional Instructions: Patient stable for discharge per Dr Irizarry Patient may restart her home medications except Sumatriptan which has interaction with anticoagulant Xarelto. Patient should immediately return to the ED if symptoms return or worsen. Patient verbalized understanding to these instructions and agreed. Patient is aware she must follow up with Podiatry, Dr Cabral, and Orthopedist, Dr Kiser. She will follow results of her MRI Shoulder with Dr Kiser. Prescribed Medications: Dr Cabral placement specialist has already sent prescriptions for Xarelto, Keflex, and Percocet to [facility] in [place]. Patient states she already has filled the prescriptions and they are awaiting her at her home. Lactobacillus 1 cap by mouth twice daily (disp #74) <Juan Irizarry - Last Filed: 12/13/18 13:13> Provider - Provider Date of Admission: 12/09/18 12:28 Attending physician: Benito Hudson DO Consults: 12/09/18 18:20 Orthopedic Consult Routine Comment: left shoulder pain s/p traumatic fall Consulting Provider: Cathy Kiser Consulting Physician: Cathy Kiser Reason for Consult: left shoulder pain s/p traumatic [facility] Course - Lab Results Lab Results: Most Recent Lab Values WBC 7.5 K/uL (4.8-10.8) 12/10/18 06:47 RBC 3.73 Mil/uL (3.80-5.20) L 12/10/18 06:47 Hgb 11.0 g/dL (11.0-16.0) 12/10/18 06:47 Hct 32.0 % (34.0-47.0) L 12/10/18 06:47 MCV 85.8 fL (81.0-99.0) 12/10/18 06:47 MCH 29.4 pg (27.0-31.0) 12/10/18 06:47 MCHC 34.3 g/dL (33.0-37.0) 12/10/18 06:47 RDW 15.7 % (11.5-14.5) H 12/10/18 06:47 Plt Count 129 K/uL (130-400) L D 12/10/18 06:47 MPV 11.1 fL (7.2-11.7) 12/10/18 06:47 Neut % (Auto) 75.3 % (50.0-75.0) H 12/10/18 06:47 Lymph % (Auto) 15.8 % (20.0-40.0) L 12/10/18 06:47 [place] % (Auto) 8.6 % (0.0-10.0) 12/10/18 06:47 Eos % (Auto) 0.1 % (0.0-4.0) 12/10/18 06:47 Baso % (Auto) 0.2 % (0.0-2.0) 12/10/18 06:47 Neut # (Auto) 5.6 K/uL (1.8-7.0) 12/10/18 06:47 Lymph # (Auto) 1.2 K/uL (1.0-4.3) 12/10/18 06:47 [place] # (Auto) 0.6 K/uL (0.0-0.8) 12/10/18 06:47 Eos # (Auto) 0.0 K/uL (0.0-0.7) 12/10/18 06:47 Baso # (Auto) 0.0 K/uL (0.0-0.2) 12/10/18 06:47 Neutrophils % (Manual) 87 % (50-75) H 12/09/18 15:21 Band Neutrophils % 3 % (0-2) H 12/09/18 15:21 Lymphocytes % (Manual) 6 % (20-40) L 12/09/18 15:21 Monocytes % (Manual) 4 % (0-10) 12/09/18 15:21 Differential Comment 12/10/18 06:47 Platelet Estimate Normal (NORMAL) 12/09/18 15:21 Sodium 136 mmol/L (132-148) 12/10/18 06:47 Potassium 3.9 mmol/L (3.6-5.2) 12/10/18 06:47 Chloride 104 mmol/L (98-107) 12/10/18 06:47 Carbon Dioxide 30 mmol/L (22-30) 12/10/18 06:47 Anion Gap 7 (10-20) L 12/10/18 06:47 BUN 12 mg/dL (7-17) 12/10/18 06:47 Creatinine 0.6 mg/dL (0.7-1.2) L 12/10/18 06:47 Est GFR ( Amer) > 60 12/10/18 06:47 Est GFR (Non-Af Amer) > 60 12/10/18 06:47 Random Glucose 96 mg/dL (65-105) D 12/10/18 06:47 Calcium 8.9 mg/dl (8.6-10.4) 12/10/18 06:47 Phosphorus 2.7 mg/dL (2.5-4.5) 12/10/18 06:47 Magnesium 1.9 mg/dL (1.6-2.3) 12/10/18 06:47 Total Bilirubin 0.3 mg/dL (0.2-1.3) 12/10/18 06:47 AST 46 U/L (14-36) H 12/10/18 06:47 ALT 33 U/L (9-52) 12/10/18 06:47 Alkaline Phosphatase 64 U/L (38-126) 12/10/18 06:47 Total Protein 6.0 g/dL (6.3-8.3) L 12/10/18 06:47 Albumin 3.5 g/dL (3.5-5.0) 12/10/18 06:47 Globulin 2.5 gm/dL (2.2-3.9) 12/10/18 06:47 Albumin/Globulin Ratio 1.4 (1.0-2.1) 12/10/18 06:47 Attending/Attestation - Attestation I have personally seen and examined this patient.: Yes I have fully participated in the care of the patient.: Yes I have reviewed all pertinent clinical information, including history, physical exam and plan: Yes Notes (Text): 12/13/18 13:13 This is a late entry. Care of this patient was gone over in detail with Dr. Taryn Sorto. Juan Irizarry D.O.
== END 2018-12-10 18:52 | disposition home or self-care (01) ==
LOC: C.SDS 06:05 → C.9S 12:28 → C.3T 16:51
PROVIDERS: ADMIT Hospitalist; ATTEND Hospitalist
DX: S92.061A Displaced intraarticular fracture of right calcaneus, initial encounter for closed fracture (principal); M25.512 Pain in left shoulder; E78.5 Hyperlipidemia, unspecified; G47.00 Insomnia, unspecified; F17.200 Nicotine dependence, unspecified, uncomplicated; Z98.890 Other specified postprocedural states; X58.XXXA Exposure to other specified factors, initial encounter; Z85.819 Personal history of malignant neoplasm of unspecified site of lip, oral cavity, and pharynx
CPT/HCPCS: 36415; 73221; 73650; 76000; 80053; 83735; 84100; 85025; 97116; 97162; G0378; G8978; G8979; J0690; J1650; J1885; J2250; J2270; J2405; J2704